=== PATIENT | female | born 1990 | race Caucasian/White ===

== ENCOUNTER 2024-03-11 03:17 | Emergency (ER) | payer BC, OTHER ==
[~2024-03-11] VITALS: Ht 167.6 cm; Wt 78.8 kg
[~2024-03-11 03:17] MED LIST: BETAMETHASONE V15 GM TOP; PRENATAL CAPLE1 EACH PO
[2024-03-11] MEDS ORDERED: NITROGLYCERIN 0.4 MG SUBL SL PRN (03:45)
[2024-03-11] MEDS ORDERED: ASPIRIN 81 MG CHEW PO ONE (03:45)
[2024-03-11] MEDS ORDERED: OZEMPIC1 MG/0.71 SQ (03:46)
[2024-03-11 03:59] LABS: BASOPHILS 0.4 % (0-2); EOSINOPHILS 5.1 % (0-6); HEMATOCRIT 42.9 % (35.0-50.0); HEMOGLOBIN 14.7 g/dL (12.0-18.0); LYMPHOCYTES 29.9 % (24-44); MCHC 34.3 g/dl (30-36); MCV 78.8 fl (81-99); MONOCYTES 5.2 % (0-12); NEUTROPHILS 59.4 % (39-80); PLATELET COUNT 281 K/uL (140-440); RBC 5.45 M/ul (4.3-5.7)
[2024-03-11] MEDS ORDERED: FAMOTIDINE 20 MG/ 2 ML VIAL IV ONE (04:00)
[2024-03-11] MEDS ORDERED: ondansetron HCL 4 MG/2 ML VIAL IV ONE (04:00)
[2024-03-11] MEDS ORDERED: KETOROLAC TROMETHAMINE 30 MG/ML VIAL IV ONE (04:15)
[2024-03-11 04:25] LABS: ALBUMIN 3.7 g/dL (3.4-5.0); ALBUMIN/GLOBULIN RATIO 0.95 (1.1-2.4); ALKALINE PHOSPHATASE 63 U/L (46-116); ALT (SGPT) 26 U/L (14-59); ANION GAP 14.9 (7-21); AST (SGOT) 11 U/L (15-37); BILIRUBIN, TOTAL 0.5 ng/dL (0.2-1.0); BUN/CREATININE RATIO 14.81 (6.0-28.6); CALCIUM 8.8 mg/dL (8.5-10.1); CARBON DIOXIDE 26 mmol/L (21-32); CHLORIDE 100 mmol/L (98-107); CREATININE, SERUM 1.08 mg/dL (0.55-1.02); GLOMERULAR FILTRATION RATE,EST 70 mL/min (>60); MAGNESIUM 1.9 mg/dL (1.8-2.4); POTASSIUM 3.9 mmol/L (3.5-5.1); PROTEIN, TOTAL 7.6 g/dL (6.4-8.2); UREA NITROGEN 16 mg/dL (7-18)
[2024-03-11] MEDS ORDERED: NAPROSYN500 MG PO (05:56)
[2024-03-11 06:14] VITALS: BP 114/79
--- NOTE | 2024-03-11 08:15 | EKG ---
[facility] [address] [facility] [place] [address] Signed Normal sinus rhythm with sinus arrhythmia Normal ECG No previous ECGs available Confirmed by Mo Eugene MD () on 03/11/2024 8:15:09 AM Electronically Signed By: MO EUGENE MD 03/11/24814 PATIENT NAME: CHRISTIANO MENDOZA Electrocardiogram DATE OF : 89 PHYSICIAN: MO EUGENE MD REPORT #: [id number] REPORT IS CONFIDENTIAL AND NOT TO BE RELEASED WITHOUT AUTHORIZATION
== END 2024-03-11 06:07 | disposition home or self-care (01) ==
LOC: ED 03:17
PROVIDERS: Internal Medicine
DX: M94.0 Chondrocostal junction syndrome [Tietze] (principal); E11.9 Type 2 diabetes mellitus without complications
CPT/HCPCS: 36415; 71045; 71260; 80053; 83735; 83880; 84484; 84703; 85025; 85379; 93005; 93010; 96375; 99285-25; A9270; J1885; J2405; Q9967

== ENCOUNTER 2025-02-26 05:34 | Emergency (ER) | payer OTHER ==
[~2025-02-26] VITALS: Ht 167.6 cm; Wt 73.2 kg
[~2025-02-26 05:34] MED LIST changes: +NAPROSYN500 MG PO; +OZEMPIC1 MG/0.71 SQ
[2025-02-26] MEDS ORDERED: LANTUS100 UNITS/ SUB-Q (06:00)
[2025-02-26] MEDS ORDERED: KETOROLAC TROMETHAMINE 30 MG/ML VIAL IV ONE (06:15)
[2025-02-26] MEDS ORDERED: LACTATED RINGER'S 1,000 ML IV ONE (06:15)
[2025-02-26] MEDS ORDERED: FAMOTIDINE 20 MG/ 2 ML VIAL IV ONE (06:15)
[2025-02-26] MEDS ORDERED: fentaNYL citrate 100 MCG/2 ML VIAL IV ONE (06:30)
[2025-02-26 07:01] LABS: ALT (SGPT) 12.0 U/L (14-59); AST (SGOT) 8.0 U/L (15-37); GLOMERULAR FILTRATION RATE,EST 102.0 mL/min (>60); PROTEIN, TOTAL 7.6 g/dL (6.4-8.2); UREA NITROGEN 9.0 mg/dL (7-18)
[2025-02-26 07:06] LABS: BASOPHILS 0.9 % (0.1-1.2); EOSINOPHILS 9.6 % (0.7-5.8); LYMPHOCYTES 22.0 % (19.3-51.7); MCH 27.1 PG (25.6-32.2); MCHC 34.7 g/dL (32.2-35.5); MCV 78.2 fL (79.4-94.8); MONOCYTES 4.8 % (4.7-12.5); NEUTROPHILS 62.4 % (34.0-71.1); RBC 5.42 M/uL (3.93-5.22)
[2025-02-26] MEDS ORDERED: LIDOCAINE & ANTACID 35 ML BTL PO ONE (08:15)
[2025-02-26 08:20] LABS: BLOOD/HGB, URINE NEGATIVE (Negative); KETONE, URINE TRACE (Negative); LEUK ESTERASE, URINE NEGATIVE (negative); NITRITE, URINE NEGATIVE (negative)
[2025-02-26 08:59] VITALS: BP 104/71
--- NOTE | 2025-02-26 16:29 | EKG ---
[facility] [address] [facility] [place] [address] Signed Sinus rhythm with premature atrial complexes Left posterior fascicular block Cannot rule out Anterior infarct , age undetermined Abnormal ECG When compared with ECG of 11-MAR-2024 03:36, premature atrial complexes are now present QRS axis shifted right Confirmed by GRETCHEN JOHNSON MD ([id number]) on 02/26/2025 4:29:28 PM Electronically Signed By: GRETCHEN JOHNSON 02/26/25 1629 PATIENT NAME: CHRISTIANO MENDOZA Electrocardiogram DATE OF : [birth year] PHYSICIAN: GRETCHEN JOHNSON REPORT #: [id number] REPORT IS CONFIDENTIAL AND NOT TO BE RELEASED WITHOUT AUTHORIZATION
== END 2025-02-26 08:59 | disposition home or self-care (01) ==
LOC: ED 05:34
PROVIDERS: Internal Medicine
DX: R10.11 Right upper quadrant pain (principal); R10.13 Epigastric pain; E11.9 Type 2 diabetes mellitus without complications; Z79.4 Long term (current) use of insulin
CPT/HCPCS: 36415; 71045; 76705; 80053; 81003; 83690; 84484; 84703; 85025; 93005; 93010; 96374; 96375; 99284-25; J1885; J2405; J3010; J7121